=== PATIENT | female | born 1970 | race Two or more races ===

== ENCOUNTER → 2021-12-27 | Outpatient (CLI) | payer OTHER ==
[~2021-12-27] MED LIST: LIPITOR20 MG PO; SYNTHROID50 MCG PO; WELLBUTRIN SR150 MG PO
== END | disposition home or self-care (01) ==
LOC: TOM 07:20
PROVIDERS: ATTEND Specialist
DX: K43.9 Ventral hernia without obstruction or gangrene (principal)